=== PATIENT | male | born 1930 | race Caucasian/White ===

== ENCOUNTER 2017-08-02 23:32 | Emergency (ER) | payer OTHER, MEDICARE ==
[~2017-08-02] VITALS: Ht 180.3 cm; Wt 94.8 kg
[~2017-08-02 23:32] MED LIST: CILOXAN 0.100 DROP/5 LEFT EYE
[2017-08-02 23:58] LABS: POINT-OF-CARE METER ID UU13113778
[2017-08-03 00:15] LABS: MCH 31.1 PG (29.0-34.0); MCHC 33.8 G/DL (30.0-36.0); MCV 91.8 FL (86-99); MEAN PLAT.VOLUME 9.7 uM^3 (9.0-12.4); PLATELET COUNT 229 K/uL (156-360); RBC DIS.WIDTH-CV 12.5 % (11.8-14.6); RBC DIS.WIDTH-SD 41.9 % (39-53); RED BLOOD COUNT 4.25 M/uL (4.00-5.50)
[2017-08-03 00:25] LABS: CHLORIDE 102 mEq/L (99-109); POTASSIUM 4.2 mEq/L (3.7-5.4); SODIUM 139 mEq/L (136-147)
[2017-08-03 00:27] LABS: GLUCOSE 132 mg/dL (70-99)
[2017-08-03 00:29] LABS: ANION GAP 11 MEQ/L (2-14)
[2017-08-03 00:31] LABS: GFR ESTIMATE (CALCULATED) 56 mL/min/
[2017-08-03 00:32] LABS: UREA NITROGEN (BUN) 23 mg/dL (9-23)
[2017-08-03 02:45] VITALS: BP 140/78
== END 2017-08-03 02:45 | disposition home or self-care (01) ==
LOC: EME 23:32
DX: R51 Headache (principal); R53.1 Weakness; R29.6 Repeated falls; R11.2 Nausea with vomiting, unspecified; G20 Parkinson's disease
CPT/HCPCS: 71020; 80048; 81003; 82948; 85027; 93005; 99281; 99283